=== PATIENT | male | born 1965 ===

== ENCOUNTER → 2020-05-15 14:55 | Outpatient (BNVA) | payer OTHER, SELFPAY | PROVIDERS: PCP Internal Medicine; Visit Provider Internal Medicine ==

== ENCOUNTER → 2020-11-29 15:03 | Outpatient (BNVA) | payer OTHER, SELFPAY | PROVIDERS: PCP Nurse Practitioner Family; Visit Provider Internal Medicine ==

== ENCOUNTER → 2021-06-11 14:54 | Outpatient (BNVA) | payer OTHER, SELFPAY | PROVIDERS: PCP Nurse Practitioner Family; Visit Provider Internal Medicine ==

== ENCOUNTER → 2022-06-10 14:52 | Outpatient (BNVA) | payer OTHER, SELFPAY | PROVIDERS: PCP Nurse Practitioner Family; Visit Provider Internal Medicine | DX: Z13.89 Encounter for screening for other disorder (principal) ==

== ENCOUNTER 2022-12-16 14:43 | Outpatient (AMB) | payer OTHER, SELFPAY ==
--- NOTE | 2022-12-16 14:57 | A.OFFVIS_ITS ---
Intake Vital Signs 12/16/22 14:58 Height 5 ft 11 in Weight 343 lb BMI 47.8 BP 122/76 Blood Pressure Location Lt brachial Position Sitting Pulse 87 Pulse Source Pulse Oximeter Pulse Oximetry (%) 97 Oxygen Delivery Method Room Air Intake Visit Reasons: Sleep apnea Intake Note: pt is here for follow up and states he is doing well with cpap. Watch And Clock Maker And Repairer Required: No Allergies azathioprine [From Imuran] Adverse Reaction (Unknown, Verified 12/16/22 15:24) HYPOTENSION oxycodone [From Percocet] Adverse Reaction (Unknown, Verified 12/16/22 15:24) NAUSEA & VOMITING Medication List - Last Reconciled 12/16/22 by Fabricio Jernigan MD allopurinol 150 mg PO DAILY cholecalciferol (vitamin D3) 25 mcg PO DAILY infliximab (Remicade) IV .q7w losartan 50 mg PO DAILY magnesium 400 mg PO DAILY multivitamin (Daily Multi-Vitamin tablet) 1 tab PO DAILY sildenafil 100 mg PO DAILY PRN HPI Sleep apnea HPI Details 57 years old big man , works in [employer], known case S of obstructive sleep apnea, being treated with BiPAP CMs He uses his BiPAP very, regularly with full face mask sleeps almost 8 hours per night, Denies any problems with the mask or CPAP device. He remains active and energetic during the daytime. Weight jackson not a big progress but he has lost about 6 lb during the last 6 months. [facility] Medical History (Updated 12/16/22 @ 15:34 by Fabricio Jernigan MD) Crohn disease FISH treated with BiPAP Morbid obesity Social History (Updated 12/16/22 @ 15:00 by Ariela Baptiste Amanda) Patient Tobacco Use Status: Former Tobacco user Years Smoked: 2007 Review of Systems Const All systems reviewed & are unremarkable except as noted in HPI and below Eyes Reports no additional complaints ENT Reports no additional complaints Card Denies chest pain, Denies irregular heart rhythm, Denies leg edema and Denies dyspnea on exertion Resp Denies cough, Denies dyspnea on exertion and Denies wheezing GI Reports no additional complaints Musc Reports back pain and Reports arthralgias (CONTROLLED WITH MEDICINE) Skin/Breast Reports system reviewed and no additional complaints, except as documented Neuro Reports no additional complaints Psych Reports no additional complaints Aller/Immun Denies wheezing Physical Exam Vital Signs: Last Vital Signs Pulse 87 12/16/22 14:58 BP 122/76 12/16/22 14:58 Pulse Ox 97 12/16/22 14:58 Oxygen Delivery Method Room Air 12/16/22 14:58 BMI result Body Mass Index 47.8 Const Other: Grossly obese with a round face General: comfortable, no acute distress, alert and awake Orientation/consciousness: patient oriented x3 HEENT Head: Yes normal to inspection General nose exam: No nasal polyps present and No nasal discharge present Face and sinus: Yes sinuses nontender Mouth: oropharynx normal Throat: Yes posterior oropharynx normal Eyes General: appearance normal, both eyes and all related structures Neck Neck: Yes normal visual inspection, Yes no lymphadenopathy, Yes trachea midline and Yes no JVD Thyroid: Thyroid normal Chest Chest palpation & inspection: normal inspection of the chest, normal palpation of entire chest wall and no tenderness Resp Effort & Inspection: normal respiratory effort Auscultation: clear to auscultation bilaterally, no crackles and no wheezes Percussion: percussion normal Cardio Palpation: normal PMI Rate: regular rate Rhythm: regular rhythm Heart sounds: no gallops and no murmurs Peripheral pulses: Peripheral pulses 2+ throughout GI Palpation (GI): Soft to palpation, nontender, No hepatosplenomegaly present, no masses and Other GI palpation findings present (Abdomen is markedly obese and protuberant) Auscultation: normal bowel sounds Back/Spine/Pelvis Thoracic/Lumbar Spine: thoracic and lumbar spine normal to inspection Skin General skin exam: no rashes or lesions noted Neuro General: patient oriented x3 and no focal motor deficits Cranial nerves: Yes CN's II-XII intact bilaterally Extrem General: Yes normal to inspection, Yes no clubbing, cyanosis or edema and Yes no calf tenderness Psych Appearance: grossly normal and well kempt Speech and movement: Normal speech and movement present Results Reviewed Results Reviewed: Compliance report for the last 30 nights is reviewed. He has used 30/30 nights, 100%. Average use per night 7 hours 53 minutes. Pressure used 19.6 cm. No significant air leak. Residual AHI 1.3 Assessment & Plan Assessment & Plan (1) Morbid obesity: Comment: THIS GENTLEMAN REMAINS MORBIDLY OBESE. HE HAS NOT BEEN DOING MUCH EXERCISE. I HAD A DETAILED DISCUSSION AND STRESSED THAT HE NEEDS TO START DAILY WALKING AND CUT DOWN ON THE CALORIES INTAKE. OR MAY JOIN A WEIGHT MANAGEMENT PROGRAM. HE SEEMS TO BE WELL MOTIVATED TO LOSE WEIGHT, AND IS GOING TO TRY HIS BEST. Code(s): E66.01 - Morbid (severe) obesity due to excess calories (2) FISH treated with BiPAP: Comment: HE IS VERY COMPLIANT TO USE CPAP, PRESSURE 19.8 CMs , AND IS DEFINITELY BENEFITING. HE HAS NO ISSUES WITH THE MASK OR CPAP DEVICE. HE IS WELL MOTIVATED TO KEEP ON USING IT REGULARLY. Code(s): G47.33 - Obstructive sleep apnea (adult) (pediatric) (3) Crohn disease: Comment: This gentleman is a known case of Crohn's disease. It remains well controlled with the use of Remicade. Code(s): K50.90 - Crohn's disease, unspecified, without complications Coding Level of Care Code Est Pt Level 3 (98869) Diagnoses Morbid obesity E66.01 FISH treated with BiPAP G47.33 Crohn disease K50.90
[2022-12-16 14:58] VITALS: BP 122/76; PULSE 87; O2SAT 97; BMI 47.8
== END 2022-12-16 15:26 | disposition home or self-care (01) ==
PROVIDERS: PCP Nurse Practitioner Family; Visit Provider Internal Medicine
DX: E66.01 Morbid (severe) obesity due to excess calories (principal); G47.33 Obstructive sleep apnea (adult) (pediatric); K50.90 Crohn's disease, unspecified, without complications
CPT/HCPCS: 99213

== ENCOUNTER → 2022-12-16 14:43 | Outpatient (BNVA) | payer OTHER, SELFPAY | PROVIDERS: PCP Nurse Practitioner Family; Visit Provider Internal Medicine | DX: E66.01 Morbid (severe) obesity due to excess calories (principal); G47.33 Obstructive sleep apnea (adult) (pediatric) ==

== ENCOUNTER 2023-06-16 15:49 | Outpatient (AMB) | payer OTHER, SELFPAY ==
--- NOTE | 2023-06-16 15:53 | MHC.OFFVIS ---
Intake Vital Signs 06/16/23 15:54 Height 5 ft 11 in Weight 346 lb 2.012 oz BMI 48.3 BP 120/82 Blood Pressure Location Lt brachial Position Sitting Pulse 81 Pulse Source Pulse Oximeter Pulse Oximetry (%) 96 Oxygen Delivery Method Room Air Intake Visit Reasons: Sleep apnea Intake Note: pt is here for follow up and states he is using cpap and doing well. Party Plan Sales Host/Hostess Required: No Allergies azathioprine [From Imuran] Adverse Reaction (Unknown, Verified 06/16/23 16:02) HYPOTENSION oxycodone [From Percocet] Adverse Reaction (Unknown, Verified 06/16/23 16:02) NAUSEA & VOMITING Medication List - Last Reconciled 06/16/23 by Fabricio Jernigan MD allopurinol 150 mg PO DAILY amlodipine 5 mg PO DAILY cholecalciferol (vitamin D3) 25 mcg PO DAILY infliximab (Remicade) IV .q7w losartan 100 mg PO DAILY magnesium 400 mg PO DAILY multivitamin (Daily Multi-Vitamin tablet) 1 tab PO DAILY sildenafil 100 mg PO DAILY PRN Do you need a note to return to daycare/school/sports/work: No HPI Sleep apnea HPI Details HAYDEN AUGUST IS 57 YEARS OLD GENTLEMAN WITH MORBID OBESITY, CURRENT BMI 48.3, HE HAS A KNOWN CASE OF OBSTRUCTIVE SLEEP APNEA, BEING TREATED WITH CPAP PRESSURE SETTING OF 19.6 CM. HE COMES AFTER 6 MONTHS FOR FOLLOW-UP. HE HE HAS BEEN USING IT VERY REGULARLY EVERY NIGHT AT LEAST 8 HOURS PER NIGHT,. AND SLEEPS GOOD HE HAS NO ISSUES WITH THE CPAP DEVICE EXCEPT FOR SOME AIR LEAK AND HE HAS SOLVED IT BY PUTTING SOME TAPE AROUND THE MASK LINING. HE IS DEFINITELY BENEFITING FROM THE USE OF CPAP. HIS WEIGHT REMAINS UNCHANGED, HE HAS BEEN SOMEWHAT SEDENTARY DURING THE WINTER MONTHS. [facility] Medical History Crohn disease FISH treated with BiPAP Morbid obesity Social History Patient Tobacco Use Status: Former Tobacco user Years Smoked: 2007 Review of Systems Const All systems reviewed & are unremarkable except as noted in HPI and below Eyes Reports no additional complaints ENT Reports no additional complaints Card Denies chest pain, Denies irregular heart rhythm, Denies leg edema and Denies dyspnea on exertion Resp Denies cough, Denies dyspnea on exertion and Denies wheezing GI Reports no additional complaints Musc Reports back pain and Reports arthralgias (CONTROLLED WITH MEDICINE) Skin/Breast Reports system reviewed and no additional complaints, except as documented Neuro Reports no additional complaints Psych Reports no additional complaints Aller/Immun Denies wheezing Physical Exam Vital Signs: Last Vital Signs Pulse 81 06/16/23 15:54 BP 120/82 06/16/23 15:54 Pulse Ox 96 06/16/23 15:54 Oxygen Delivery Method Room Air 06/16/23 15:54 BMI result Body Mass Index 48.3 Const Other: Grossly obese with a round face General: comfortable, no acute distress, alert and awake Orientation/consciousness: patient oriented x3 HEENT Head: Yes normal to inspection General nose exam: No nasal polyps present and No nasal discharge present Face and sinus: Yes sinuses nontender Mouth: oropharynx normal Throat: Yes posterior oropharynx normal Eyes General: appearance normal, both eyes and all related structures Neck Neck: Yes normal visual inspection, Yes no lymphadenopathy, Yes trachea midline and Yes no JVD Thyroid: Thyroid normal Chest Chest palpation & inspection: normal inspection of the chest, normal palpation of entire chest wall and no tenderness Resp Effort & Inspection: normal respiratory effort Auscultation: clear to auscultation bilaterally, no crackles and no wheezes Percussion: percussion normal Cardio Palpation: normal PMI Rate: regular rate Rhythm: regular rhythm Heart sounds: no gallops and no murmurs Peripheral pulses: Peripheral pulses 2+ throughout GI Palpation (GI): Soft to palpation, nontender, No hepatosplenomegaly present, no masses and Other GI palpation findings present (Abdomen is markedly obese and protuberant) Auscultation: normal bowel sounds Back/Spine/Pelvis Thoracic/Lumbar Spine: thoracic and lumbar spine normal to inspection Skin General skin exam: no rashes or lesions noted Neuro General: patient oriented x3 and no focal motor deficits Cranial nerves: Yes CN's II-XII intact bilaterally Extrem General: Yes normal to inspection, Yes no clubbing, cyanosis or edema and Yes no calf tenderness Psych Appearance: grossly normal and well kempt Speech and movement: Normal speech and movement present Results Reviewed Results Reviewed: COMPLIANCE REPORT FOR THE LAST 30 NIGHTS SHOWS THAT HE HAS USED 30/30 NIGHTS, 100%. AVERAGE USE IT PER NIGHT 8 HOURS 3 MINUTES. .THERE IS ONLY MINIMAL AIR LEAK RESIDUAL AHI 2.0 Assessment & Plan Assessment & Plan (1) Morbid obesity: Comment: THIS GENTLEMAN REMAINS MORBIDLY OBESE. HE HAS NOT BEEN DOING MUCH EXERCISE. HE SEEMS TO BE WELL MOTIVATED TO LOSE WEIGHT, AND IS GOING TO TRY HIS BEST. Code(s): E66.01 - Morbid (severe) obesity due to excess calories Plan: I HAD A DETAILED DISCUSSION AND STRESSED THAT HE NEEDS TO START DAILY WALKING AND CUT DOWN ON THE CALORIES INTAKE. OR MAY JOIN A WEIGHT MANAGEMENT PROGRAM. (2) FISH treated with BiPAP: Comment: HE IS VERY COMPLIANT TO USE CPAP, PRESSURE 19.6 CMs , AND IS DEFINITELY BENEFITING. HE HAS NO ISSUES WITH THE MASK OR CPAP DEVICE. HE IS WELL MOTIVATED TO KEEP ON USING IT REGULARLY. Code(s): G47.33 - Obstructive sleep apnea (adult) (pediatric) Plan: COMMENDED FOR GOOD COMPLIANCE. ADVISED TO KEEP ON USING CPAP EVERY NIGHT. Coding Level of Care Code Est Pt Level 3 (32199) Diagnoses Morbid obesity E66.01 FISH treated with BiPAP G47.33
[2023-06-16 15:54] VITALS: BP 120/82; PULSE 81; O2SAT 96; BMI 48.3
== END 2023-06-16 16:10 | disposition home or self-care (01) ==
PROVIDERS: PCP Nurse Practitioner Family; Visit Provider Internal Medicine
DX: E66.01 Morbid (severe) obesity due to excess calories (principal); G47.33 Obstructive sleep apnea (adult) (pediatric)
CPT/HCPCS: 99213

== ENCOUNTER → 2023-06-16 15:49 | Outpatient (BNVA) | payer OTHER, SELFPAY | PROVIDERS: PCP Nurse Practitioner Family; Visit Provider Internal Medicine | DX: E66.01 Morbid (severe) obesity due to excess calories (principal); G47.33 Obstructive sleep apnea (adult) (pediatric) ==

== ENCOUNTER 2024-02-11 15:21 | Outpatient (AMB) | payer OTHER, SELFPAY ==
--- NOTE | 2024-02-11 15:24 | MHC.OFFVIS ---
Vital Signs 02/11/24 15:29 Height 5 ft 11 in Weight 347 lb 3.649 oz BMI 48.4 BP 126/80 Blood Pressure Location Rt brachial Pulse 81 Pulse Source Pulse Oximeter Pulse Oximetry (%) 98 Oxygen Delivery Method Room Air Intake Visit Reasons: sleep apnea Coat Ironer Hand Required: No Pneudraulic Systems Mechanic: Pneudraulic Systems Mechanic offered & declined Accompanied by: Self / Same As Patient Allergies azathioprine [From Imuran] Adverse Reaction (Unknown, Verified 02/11/24 15:34) HYPOTENSION oxycodone [From Percocet] Adverse Reaction (Unknown, Verified 02/11/24 15:34) NAUSEA & VOMITING Medication List - Last Reconciled 02/11/24 by Fabricio Jernigan MD allopurinol 150 mg PO DAILY amlodipine 5 mg PO DAILY cholecalciferol (vitamin D3) 25 mcg PO DAILY infliximab (Remicade) IV .q7w losartan 100 mg PO DAILY magnesium 400 mg PO DAILY multivitamin (Daily Multi-Vitamin tablet) 1 tab PO DAILY sildenafil 100 mg PO DAILY PRN Do you need a note to return to daycare/school/sports/work: No HPI HPI sleep apnea: Details: THIS 58 YEARS OLD GENTLEMAN WITH MORBID OBESITY, IS HERE FOR FOLLOW-UP FOR HIS SLEEP APNEA. HE HAS NOT BEEN ABLE TO LOSE MUCH WEIGHT, BECAUSE HE IS NOT ABLE TO DO ANY EXERCISE. USES CPAP VERY RELIGIOUSLY EVERY NIGHT AND SLEEPS WELL FOR 7-8 HOURS, HE HAS NO ISSUE WITH THE CPAP DEVICE , AND IS HAPPY THAT IT HAS IMPROVED HIS SLEEP QUALITY. [facility] Medical History Crohn disease FISH treated with BiPAP Morbid obesity Social History Patient Tobacco Use Status: Former Tobacco user Years Smoked: 2007 Review of Systems Const All systems reviewed & are unremarkable except as noted in HPI and below Eyes Reports no additional complaints ENT Reports no additional complaints Card Denies chest pain, Denies irregular heart rhythm, Denies leg edema and Denies dyspnea on exertion Resp Denies cough, Denies dyspnea on exertion and Denies wheezing GI Reports no additional complaints Musc Reports back pain and Reports arthralgias (CONTROLLED WITH MEDICINE) Skin/Breast Reports system reviewed and no additional complaints, except as documented Neuro Reports no additional complaints Psych Reports no additional complaints Aller/Immun Denies wheezing Physical Exam Vital Signs: Last Vital Signs Pulse 81 02/11/24 15:29 BP 126/80 02/11/24 15:29 Pulse Ox 98 02/11/24 15:29 Oxygen Delivery Method Room Air 02/11/24 15:29 BMI result Body Mass Index 48.4 Const Other: Grossly obese with a round face General: comfortable, no acute distress, alert and awake Orientation/consciousness: patient oriented x3 HEENT Head: Yes normal to inspection General nose exam: No nasal polyps present and No nasal discharge present Face and sinus: Yes sinuses nontender Mouth: oropharynx normal Throat: Yes posterior oropharynx normal Eyes General: appearance normal, both eyes and all related structures Neck Neck: Yes normal visual inspection, Yes no lymphadenopathy, Yes trachea midline and Yes no JVD Thyroid: Thyroid normal Chest Chest palpation & inspection: normal inspection of the chest, normal palpation of entire chest wall and no tenderness Resp Effort & Inspection: normal respiratory effort Auscultation: clear to auscultation bilaterally, no crackles and no wheezes Percussion: percussion normal Cardio Palpation: normal PMI Rate: regular rate Rhythm: regular rhythm Heart sounds: no gallops and no murmurs Peripheral pulses: Peripheral pulses 2+ throughout GI Palpation (GI): Soft to palpation, nontender, No hepatosplenomegaly present, no masses and Other GI palpation findings present (Abdomen is markedly obese and protuberant) Auscultation: normal bowel sounds Back/Spine/Pelvis Thoracic/Lumbar Spine: thoracic and lumbar spine normal to inspection Skin General skin exam: no rashes or lesions noted Neuro General: patient oriented x3 and no focal motor deficits Cranial nerves: Yes CN's II-XII intact bilaterally Extrem General: Yes normal to inspection, Yes no clubbing, cyanosis or edema and Yes no calf tenderness Psych Appearance: grossly normal and well kempt Speech and movement: Normal speech and movement present Results Reviewed Results Reviewed: COMPLIANCE REPORT FOR THE LAST 90 NIGHTS SHOWS THAT HE HAS USED 100% OF THE NIGHTS. AVERAGE USE IT PER NIGHT 7 HOURS 55 MINUTES. CURRENTLY HE IS ON PRESSURE OF 19.6 CM ( 19.6/19.6 ) NO AIR LEAK. RESIDUAL AHI ONLY 1.1 Assessment & Plan Assessment & Plan (1) Crohn disease: Comment: This gentleman is a known case of Crohn's disease. It remains well controlled with the use of Remicade. Code(s): K50.90 - Crohn's disease, unspecified, without complications Category: Medical Plan: HE WILL CONTINUE TO FOLLOW-UP WITH GI SERVICE. (2) FISH treated with BiPAP: Comment: HE IS VERY COMPLIANT TO USE CPAP, PRESSURE 19.6 CMs , AND IS DEFINITELY BENEFITING. HE HAS NO ISSUES WITH THE MASK OR CPAP DEVICE. HE IS WELL MOTIVATED TO KEEP ON USING IT REGULARLY. Code(s): G47.33 - Obstructive sleep apnea (adult) (pediatric) Category: Medical Plan: COMMENDED FOR HIS EXCELLENT COMPLIANCE AND ENCOURAGED TO KEEP ON USING EVERY NIGHT. (3) Morbid obesity: Comment: THIS GENTLEMAN REMAINS MORBIDLY OBESE. HE HAS NOT BEEN DOING MUCH EXERCISE. HE SEEMS TO BE WELL MOTIVATED TO LOSE WEIGHT, AND IS GOING TO TRY HIS BEST. Code(s): E66.01 - Morbid (severe) obesity due to excess calories Category: Medical Plan: AGAIN DISCUSSED WITH HIM THE IMPORTANCE OF WEIGHT REDUCTION, AND ENCOURAGED TO PARTICIPATE. IN A WEIGHT MANAGEMENT PROGRAM Coding Level of Care Code Est Pt Level 3 (83528) Diagnoses Crohn disease K50.90 FISH treated with BiPAP G47.33 Morbid obesity E66.01
[2024-02-11 15:29] VITALS: BP 126/80; PULSE 81; O2SAT 98; BMI 48.4
== END 2024-02-11 15:39 | disposition home or self-care (01) ==
PROVIDERS: PCP Family Medicine; Visit Provider Internal Medicine
DX: K50.90 Crohn's disease, unspecified, without complications (principal); G47.33 Obstructive sleep apnea (adult) (pediatric); E66.01 Morbid (severe) obesity due to excess calories
CPT/HCPCS: 99213

== ENCOUNTER → 2024-02-11 15:21 | Outpatient (BNVA) | payer OTHER, SELFPAY | PROVIDERS: PCP Nurse Practitioner Family; Visit Provider Internal Medicine ==

== ENCOUNTER 2024-09-15 15:36 | Outpatient (AMB) | payer OTHER, SELFPAY ==
--- NOTE | 2024-09-15 15:39 | A.OFFVIS_ITS ---
Vital Signs 09/15/24 15:40 Height 5 ft 11 in Weight 347 lb 3.649 oz BMI 48.4 BP 102/64 Blood Pressure Location Lt brachial Position Sitting Pulse 53 Pulse Source Pulse Oximeter Pulse Oximetry (%) 97 Oxygen Delivery Method Room Air Intake Visit Reasons: Sleep apnea Intake Note: pt is her for follow up and states he is feeling good, and cpap is well, and getting supplies. Light Armored Vehicle Officer Required: No Allergies azathioprine [From Imuran] Adverse Reaction (Unknown, Verified 09/15/24 15:52) HYPOTENSION oxycodone [From Percocet] Adverse Reaction (Unknown, Verified 09/15/24 15:52) NAUSEA & VOMITING Medication List - Last Reconciled 09/15/24 by Fabricio Jernigan MD allopurinol 150 mg PO DAILY amlodipine 5 mg PO DAILY cholecalciferol (vitamin D3) 25 mcg PO DAILY infliximab (Remicade) IV .q7w losartan 100 mg PO DAILY magnesium 400 mg PO DAILY multivitamin (Daily Multi-Vitamin tablet) 1 tab PO DAILY sildenafil 100 mg PO DAILY PRN HPI HPI Sleep apnea: Details: THIS 58 YEARS OLD GENTLEMAN WITH MORBID OBESITY AND OBSTRUCTIVE SLEEP APNEA COMES TODAY FOR HIS 6 MONTHS FOLLOW-UP. HE USES CPAP VERY REGULARLY EVERY NIGHT, VIA FULLFACE MASK ALONG WITH CHINSTRAP. HE CLAIMS THAT HE SLEEPS WITHOUT MUCH PROBLEM. AND HE IS VERY HAPPY WITH HIS CPAP AND THE MASK AT THIS TIME. HAS NOT BEEN ABLE TO LOSE ANY WEIGHT AND NOW HE IS GETTING READY TO BE STARTED ON WAGOVY INJECTIONS. [facility] Medical History Crohn disease FISH treated with BiPAP Morbid obesity Social History Patient Tobacco Use Status: Former Tobacco user Years Smoked: 2007 Review of Systems Const All systems reviewed & are unremarkable except as noted in HPI and below Eyes Reports no additional complaints ENT Reports no additional complaints Card Denies chest pain, Denies irregular heart rhythm, Denies leg edema and Denies dyspnea on exertion Resp Denies cough, Denies dyspnea on exertion and Denies wheezing GI Reports no additional complaints Musc Reports back pain and Reports arthralgias (CONTROLLED WITH MEDICINE) Skin/Breast Reports system reviewed and no additional complaints, except as documented Neuro Reports no additional complaints Psych Reports no additional complaints Aller/Immun Denies wheezing Physical Exam Vital Signs: Last Vital Signs Pulse 53 09/15/24 15:40 BP 102/64 09/15/24 15:40 Pulse Ox 97 09/15/24 15:40 Oxygen Delivery Method Room Air 09/15/24 15:40 BMI result Body Mass Index 48.4 Const Other: Grossly obese with a round face General: comfortable, no acute distress, alert and awake Orientation/consciousness: patient oriented x3 HEENT Head: Yes normal to inspection General nose exam: No nasal polyps present and No nasal discharge present Face and sinus: Yes sinuses nontender Mouth: oropharynx normal Throat: Yes posterior oropharynx normal Eyes General: appearance normal, both eyes and all related structures Neck Neck: Yes normal visual inspection, Yes no lymphadenopathy, Yes trachea midline and Yes no JVD Thyroid: Thyroid normal Chest Chest palpation & inspection: normal inspection of the chest, normal palpation of entire chest wall and no tenderness Resp Effort & Inspection: normal respiratory effort Auscultation: clear to auscultation bilaterally, no crackles and no wheezes Percussion: percussion normal Cardio Palpation: normal PMI Rate: regular rate Rhythm: regular rhythm Heart sounds: no gallops and no murmurs Peripheral pulses: Peripheral pulses 2+ throughout GI Palpation (GI): Soft to palpation, nontender, No hepatosplenomegaly present, no masses and Other GI palpation findings present (Abdomen is markedly obese and protuberant) Auscultation: normal bowel sounds Back/Spine/Pelvis Thoracic/Lumbar Spine: thoracic and lumbar spine normal to inspection Skin General skin exam: no rashes or lesions noted Neuro General: patient oriented x3 and no focal motor deficits Cranial nerves: Yes CN's II-XII intact bilaterally Extrem General: Yes normal to inspection, Yes no clubbing, cyanosis or edema and Yes no calf tenderness Psych Appearance: grossly normal and well kempt Speech and movement: Normal speech and movement present Results Reviewed Results Reviewed: COMPLIANCE REPORT FOR THE LAST 30 NIGHTS. IS REVIEWED HE HAS USED 100% OF THE NIGHTS AND AVERAGE USE PER NIGHT 7 HOURS 54 MINUTES. THERE IS NO SIGNIFICANT AIR LEAK AND RESIDUAL AHI IS 1.0 Assessment & Plan Assessment & Plan (1) Morbid obesity: Comment: THIS GENTLEMAN REMAINS MORBIDLY OBESE. HE HAS NOT BEEN DOING MUCH EXERCISE. HE SEEMS TO BE WELL MOTIVATED TO LOSE WEIGHT, AND IS GOING TO TRY HIS BEST. Code(s): E66.01 - Morbid (severe) obesity due to excess calories Category: Medical Plan: ENCOURAGED TO DISCUSS WITH PRIMARY CARE PHYSICIAN ABOUT STARTING ON WAGOVY INJECTIONS .AND TRY TO LOSE WEIGHT (2) FISH treated with BiPAP: Comment: HE IS VERY COMPLIANT TO USE CPAP, PRESSURE 19.6 CMs , FULLFACE MASK AND CHINSTRAP . HE IS DEFINITELY BENEFITING. HE HAS NO ISSUES WITH THE MASK OR CPAP DEVICE. HE IS WELL MOTIVATED TO KEEP ON USING IT REGULARLY. Code(s): G47.33 - Obstructive sleep apnea (adult) (pediatric) Category: Medical Plan: COMMENDED FOR GOOD COMPLIANCE AND ADVISED TO KEEP ON USING THE CPAP EVERY NIGHT. Coding Level of Care Code Est Pt Level 3 (79856) Diagnoses Morbid obesity E66.01 FISH treated with BiPAP G47.33
[2024-09-15 15:40] VITALS: BP 102/64; PULSE 53; O2SAT 97; BMI 48.4
--- OUTSIDE RECORDS SUMMARY | 2024-09-15 18:03 | XMS_ITS | Continuity of Care Document ---
Author Organization [facility] Dawood Amaury lt Address [address] [place] [address]- Care Team Providers Care Instructional Specialist Name Role Phone Jose KANG, Latanya Primary Care Physician [phone] Encounter [facility] Date(s): 09/07/24 - 09/14/24 [facility] [place] [address] [place] [address]- Encounter Diagnosis Encounter to establish care with new doctor(Discharge Diagnosis) - 09/07/24 Leukocytoclastic vasculitis(Discharge Diagnosis) - 09/07/24 Infliximab (Remicade) long-term use(Discharge Diagnosis) - 09/07/24 CD (Crohn's disease)(Discharge Diagnosis) - 09/07/24 History of substance abuse(Discharge Diagnosis) - 09/07/24 Morbid obesity(Discharge Diagnosis) - 09/07/24 Essential hypertension(Discharge Diagnosis) - 09/07/24 History of anxiety disorder(Discharge Diagnosis) - 09/07/24 History of depression(Discharge Diagnosis) - 09/07/24 Hypertriglyceridemia(Discharge Diagnosis) - 09/07/24 Nodule of right lung(Discharge Diagnosis) - 09/07/24 Chronic back pain(Discharge Diagnosis) - 09/07/24 FISH treated with BiPAP(Discharge Diagnosis) - 09/07/24 CKD (chronic kidney disease)(Discharge Diagnosis) - 09/07/24 Chronic GERD(Discharge Diagnosis) - 09/07/24 Pain of hand and fingers(Discharge Diagnosis) - 09/07/24 Family history of thyroid disorder(Discharge Diagnosis) - 09/07/24 Gout(Discharge Diagnosis) - 09/07/24 Systemic lupus erythematosus(Discharge Diagnosis) - 09/07/24 Prostatitis(Discharge Diagnosis) - 09/07/24 Erectile dysfunction(Discharge Diagnosis) - 09/07/24 Attending Physician: Latanya Garcia MD Encounter Type: Office Visit Allergies, Adverse Reactions, Alerts Substance Criticality Severity Reaction Reaction Severity Status Imuran passed out Active sulfamethoxazole-trimethopri m DS Hives Active amLODIPine swelling Active Bactrim Hives Active Percocet 7.5/325 n/v Act talia Immunizations Given and Recorded Vaccine Date Status Refusal Reason influenza virus vaccine, inactivated 03/11/24 Give n influenza virus vaccine, inactivated 12/01/20 Jose Roberto rded influenza virus vaccine, inactivated 02/02/20 Jose Roberto rded influenza virus vaccine, inactivated 03/12/16 Jose Roberto rded pneumococcal 20-valent conjugate vaccine 12/31/21 Given SARS-CoV-2 (COVID-19) Ad26 vaccine 12/18/20 Given pneumococcal 13-valent vaccine 1 09/05/20 Given tetanus/diphtheria/pertussis, acel(Tdap) 2 09/05/20 Given tetanus/diphtheria/pertussis, acel(Tdap) 06/04/09 Recorded Influenza Virus Vaccine (oldterm) 04/09/17 Recorde d Influenza Virus Vaccine (oldterm) 01/11/16 Recorde d Influenza Virus Vaccine (oldterm) 01/02/15 Recorde d Influenza Virus Vaccine (oldterm) 01/11/14 Recorde d Influenza Virus Vaccine (oldterm) 01/28/12 Recorde d 1Result Comment: given on top of TDAP [facility]-[id number] 2Result Comment: [facility]-[id number] Medications Centrum Silver Men's 1 tablet, By Mouth, Daily, 0 Refills, Maintenance, 06/06/20 2:30:00 PM EST, Partial fill upon patientrequest if the prescription is for a schedule II opioid drug. Start Date: 06/06/20 Status: Ordered Repeat number: 1 ciprofloxacin 250 mg oral tablet 1 tablet = 250 mg, By Mouth, Every 12 hours, # 28 tablet, 0 Refills, Maintenance, 05/27/24 2:00:00 PM EST, Tablet, [id number], Partial fill upon patient request if the prescription is for aschedule II opioid drug., 178.3, cm, 05/27/24 13:43:00 EST, Height, 158.9, kg, 03/10/24 9:24:00 EST, Dry Weight Start Date: 05/27/24 Stop Date: 06/10/24 Status: Ordered Quantity: 28.0 Unit: tablet Repeat number: 1 Fish Oil By Mouth, Daily, 0 Refills, Maintenance, 04/04/24 8:35:00 AM EST, Partial fill upon patient requestif the prescription is for a schedule II opioid drug. Start Date: 04/04/24 Status: Ordered Repeat number: 1 Flomax 0.4 mg oral capsule 0.4 mg, 1, capsule, By Mouth, Daily, Refills 0, Maintenance, 07/21/24 4:39:00 PM EDT, Partial fill upon patient request if the prescription is for a schedule II opioid drug. Start Date: 07/21/24 Status: Ordered Repeat number: 1 folic acid 1 mg oral tablet 1 mg, 1, tablet, By Mouth, Daily, Take 1 tablet daily with breakfast, # 30 tablet, Refills 6, Tot. Refills 6, Maintenance, 04/09/24 11:45:00 AM EST, Route to Pharmacy Electronically, [id number], Partial fill upon patient request if the prescription is for a schedule II opioid drug., 178.3,cm, 04/09/24 10:51:00 EST, Height, 158.9, kg, 03/10/24 9:24:00 EST, Dry Weight Start Date: 04/09/24 Status: Ordered Quantity: 30.0 Unit: tablet Repeat number: 7 hydroxychloroquine 200 mg oral tablet 200 mg, 1, tablet, By Mouth, 2 times a day, # 180 tablet, Refills 2, Tot. Refills 2, Maintenance, 07/21/24 4:42:00 PM EDT, Route to Pharmacy Electronically, [facility], Partial fill upon patient request if the prescription is for a schedule II opioid drug., 178.3, cm, 07/22/2515:37:00 EDT, Height, 158.9, kg, 03/10/24 9:24:00 EST, Dry Weight Start Date: 07/21/24 Status: Ordered Quantity: 180.0 Unit: tablet Repeat number: 3 infliximab 100 mg intravenous powder for injection See Instructions, 650 mg Subcutaneous Injection every 7 weeks, # 7 each, 6 Refills, Maintenance, 05/24/19 9:37:00 AM EST, Injection Start Date: 05/24/19 Status: Ordered Quantity: 7.0 Unit: each Repeat number: 7 losartan 100 mg oral tablet 1 tablet, By Mouth, Daily, # 90 tablet, 3 Refills, Maintenance, 05/30/24 8:00:00 AM EST, [facility], 178.3, cm, 05/27/24 13:43:00 EST, Height, 158.9, kg, 03/10/24 9:24:00 EST, Dry Weight Start Date: 05/30/24 Status: Ordered Quantity: 90.0 Unit: tablet Repeat number: 4 Lysine By Mouth, Twice a week, 0 Refills, Maintenance, 04/04/24 8:35:00 AM EST, Partial fill upon patient request if the prescription is for a schedule II opioid drug. Start Date: 04/04/24 Status: Ordered Repeat number: 1 methotrexate 2.5 mg oral tablet 6 tablet = 15 mg, By Mouth, Every week, for 90 days, Take 6 tablets once a week at bedtime, # 72 tablet, 1 Refills, Hard Stop 11/10/24 11:46:00 AM EDT, 05/14/24 11:46:00 AM EST, [facility], Partial fill upon patient request if the prescription is for a schedule II opioid drug., 178.3, cm, 04/09/24 10:51:00 EST, Height, 158.9, kg, 03/10/24 9:24:00 EST, Dry Weight Start Date: 05/14/24 Stop Date: 11/10/24 Status: Ordered Quantity: 72.0 Unit: tablet Repeat number: 2 methotrexate 2.5 mg oral tablet 6 tablet = 15 mg, By Mouth, Every week, Take 6 tablets once a week at bedtime, # 30 tablet, 6 Refills, Maintenance, 11/05/24 11:45:00 AM EDT, [facility], Partial fill upon patient request if the prescription is for a schedule II opioid drug., 178.3, cm, 04/09/24 10:51:00 EST, Height, 158.9, kg, 03/10/24 9:24:00 EST, Dry Weight Start Date: 11/05/24 Stop Date: 06/03/25 Status: Ordered Quantity: 30.0 Unit: tablet Repeat number: 7 methotrexate 2.5 mg oral tablet 6 tablet = 15 mg, By Mouth, Every week, for 30 days, Take 6 tablets once a week at bedtime, # 30 tablet, 6 Refills, Hard Stop 11/05/24 11:45:00 AM EDT, 04/09/24 11:45:00 AM EST, [facility], Partial fill upon patient request if the prescription is for a schedule II opioid drug., 178.3, cm, 04/09/24 10:51:00 EST, Height, 158.9, kg, 03/10/24 9:24:00 EST, Dry Weight Start Date: 04/09/24 Stop Date: 11/05/24 Status: Ordered Quantity: 30.0 Unit: tablet Repeat number: 7 metoprolol 25 mg oral tablet, extended release 25 mg, 1, tablet, By Mouth, Daily, # 30 tablet, Refills 4, Tot. Refills 4, Maintenance, 09/07/24 4:21:00 PM EDT, Route to Pharmacy Electronically, [id number], Partial fill upon patient request if the prescription is for a schedule II opioid drug., 178, cm, 09/07/24 15:59:00 EDT, Height, 158.9, kg, 03/10/24 9:24:00 EST, Dry Weight Start Date: 09/07/24 Status: Ordered Quantity: 30.0 Unit: tablet Repeat number: 5 Indications: Essential (primary) hypertension; predniSONE 20 mg oral tablet = 40 mg, By Mouth, Daily, # 60 tablet, 0 Refills, Maintenance, 03/14/24 10:42:00 AM EST, Tablet, [facility], Partial fill upon patient request if the prescription is for a schedule II opioid drug., 178, cm, 03/14/24 6:27:00 EST, Height, 158.9, kg, 03/10/24 9:24:00 EST, Dry Weight Start Date: 03/14/24 Status: Ordered Quantity: 60.0 Unit: tablet Repeat number: 1 Protonix 20 mg oral delayed release tablet 1 tablet = 20 mg, By Mouth, Daily, # 90 tablet, 0 Refills, Maintenance, 04/09/24 11:49:00 AM EST, CR Tablet, 178.3, cm, 04/09/24 10:51:00 EST, Height, 158.9, kg, 03/10/24 9:24:00 EST, Dry Weight Start Date: 04/09/24 Status: Ordered Quantity: 90.0 Unit: tablet Repeat number: 1 sildenafil 100 mg oral tablet 1 tablet, By Mouth, Daily, PRN NEEDED FOR ERECTILE DYSFUNCTION, # 30 tablet, 5 Refills, Maintenance, 11/12/23 8:23:00 AM EDT, [facility], 177.8, cm, 09/02/23 15:32:00 EDT, Height Start Date: 11/12/23 Status: Ordered Quantity: 30.0 Unit: tablet Repeat number: 6 Problem List Condition Confirmation Course Effective Dates Status Health Status Informant Chronic back pain Confirmed Active CKD (chronic kidney disease) Confirmed Active CD (Crohn's disease) Confirmed Active Infliximab (Remicade) long-term use Confirmed Active Erectile dysfunction Confirmed Active Essential hypertension Confirmed Active Family history of thyroid disorder Confirmed Active Chronic GERD Confirmed Active Gout Confirmed Active History of anxiety disorder Confirmed Active History of depression Confirmed Active Pain of hand and fingers 1 Confirmed Active History of substance abuse Confirmed Active Leukocytoclastic vasculitis Confirmed Active Hypertriglyceridemia Confirmed Active Morbid obesity Confirmed Active Nodule of right lung 2 Confirmed Active FISH treated with BiPAP Confirmed Active Peripheral edema Confirmed Active Seasonal allergies Confirmed Active Severe obesity Confirmed Active 1left finger pain and stiffness 2seen on CT scan Diagnosis Diagnosis Type Effective Dates Health Status Clinical Service Informant Encounter to establish care with new doctor Discharge Diagnosis 09/07/24 Leukocytoclastic vasculitis Discharge Diagnosis 09/07/24 CD (Crohn's disease) Discharge Diagnosis 09/07/24 History of substance abuse Discharge Diagnosis 09/07/24 Morbid obesity Discharge Diagnosis 09/07/24 Essential hypertension Discharge Diagnosis 09/07/24 History of anxiety disorder Discharge Diagnosis 09/07/24 History of depression Discharge Diagnosis 09/07/24 Hypertriglyceridemia Discharge Diagnosis 09/07/24 Infliximab (Remicade) long-term use Discharge Diagnosis 09/07/24 Nodule of right lung Discharge Diagnosis 09/07/24 FISH treated with BiPAP Discharge Diagnosis 09/07/24 CKD (chronic kidney disease) Discharge Diagnosis 09/07/24 Chronic GERD Discharge Diagnosis 09/07/24 Chronic back pain Discharge Diagnosis 09/07/24 Pain of hand and fingers Discharge Diagnosis 09/07/24 Family history of thyroid disorder Discharge Diagnosis 09/07/24 Gout Discharge Diagnosis 09/07/24 Systemic lupus erythematosus Discharge Diagnosis 09/07/24 Prostatitis Discharge Diagnosis 09/07/24 Erectile dysfunction Discharge Diagnosis 09/07/24 Social History Social History Type Response Smoking Status Former smoker, quit more than 30 days ago; Other: ex-smoker - started smoking at age 16 - smoked 1 PPD until age 23 - quit - then started smoking at age 31 - smoked 2 packs per until age 42 - quit again - doesn't qualify for lung CA smoking anymore as he is past 15 years since quit smoking??; Total pack years: 30; entered on: 09/07/24 Sex Sex Representation Male (finding) Note * Anca Bonilla: PERFORM Event Display: Patient Education/Instruction Authored Date: [id number] Ambulatory Adult Visit Summary [facility] [place] [facility] [address] [address] Name: ISIDRO TIFFANIE : 1965?? Visit: 09/07/2024 15:42?? Ambulatory Visit Instructions ?? Your Care Team Primary Care Provider Latanya Garcia MD? This Visit Provider Latanya Garcia MD Your Diagnosis Encounter to establish care with new doctor Leukocytoclastic vasculitis CD (Crohn's disease) History of substance abuse Morbid obesity Essential hypertension History of anxiety disorder History of depression Hypertriglyceridemia Infliximab (Remicade) long-term use Nodule of right lung FISH treated with BiPAP CKD (chronic kidney disease) Chronic GERD Chronic back pain Pain of hand and fingers Family history of thyroid disorder Gout Systemic lupus erythematosus Prostatitis Erectile dysfunction Vitals Signs Temperature: 98 DegF Height: 178 cm Pulse Rate:??94 bpm??High Weight: 161.3 kg Respiratory Rate: 20 br/min Body Mass Index:??50.91 kg/m2??Critical Systolic Blood Pressure: 124 mm Hg Body surface area: 2.82 Diastolic Blood Pressure: 74 mm Hg ?? Oxygen Saturation: 100 % ?? What to do next Follow-Up Appointments Follow Up with??Latanya Garcia MD When:??Within 6 months Why: CPE Mar 2025?? Where: [address] [place] [address] Medical [facility] [place] [address]- Future Orders Protein/Creatinine Ratio Urine (Urine Protein/Creatinine Ratio) - Routine, Once, 07/21/24 17:10:00 EDT, Order for Today, [facility], Urine?? [facility] - Routine, Once, 07/21/24 17:11:00 EDT, Order for Today, [facility], OTHER?? Medications The list below reflects the information in our records and provided by you today along with any changes made during this visit. Please continue your medications until treatment is completed or stopped by your provider. If this is different from the information you have or there are other questions,please contact the prescribing provider. What How Much When Why Instructions New Metoprolol (metoprolol 25 mg oral tablet, extended release) 1 tab(s) Oral Daily Essential hypertension Refills: 4 Pickup at [facility] 5628 Unchanged Ciprofloxacin (ciprofloxacin 250 mg oral tablet) 1 tab(s) Oral Every 12 hours Duration: 14 Days Unchanged Folic Acid (folic acid 1 mg oral tablet) 1 tab(s) Oral Daily Take 1 tablet daily with breakfast ?? Unchanged Hydroxychloroquine (hydroxychloroquine 200 mg oral tablet) 1 tab(s) Oral Twice a day Unchanged Infliximab (infliximab 100 mg intravenous powder for injection) See instructions 650 mg Subcutaneous Injection every 7 weeks ?? Unchanged Losartan (losartan 100 mg oral tablet) 1 tab(s) Oral Daily Unchanged Lysine Oral Twice a week ?? Unchanged Methotrexate (methotrexate 2.5 mg oral tablet) 6 tab(s) Oral Every week Duration: 30 Days Take 6 tablets once a week at bedtime ?? Unchanged Methotrexate (methotrexate 2.5 mg oral tablet) 6 tab(s) Oral Every week Duration: 30 Days Take 6 tablets once a week at bedtime ?? Unchanged Methotrexate (methotrexate 2.5 mg oral tablet) 6 tab(s) Oral Every week Duration: 90 Days Take 6 tablets once a week at bedtime ?? Unchanged Multivitamin With Minerals (Centrum Silver Men's) 1 tab(s) Oral Daily Unchanged Mcwilliams-3 Polyunsaturated Fatty Acids (Fish Oil) Oral Daily Unchanged Pantoprazole (Protonix 20 mg oral delayed release tablet) 1 tab(s) Oral Daily Unchanged PredniSONE (predniSONE 20 mg oral tablet) 40 Milligram Oral Daily Unchanged Sildenafil (sildenafil 100 mg oral tablet) 1 tab(s) Oral Daily as needed for NEEDED FOR ERECTILE DYSFUNCTION Unchanged Tamsulosin (Flomax 0.4 mg oral capsule) 1 capsule Oral Daily Pharmacy Information [facility]: [address] [place], [place] [id number] [phone] Medications and Immunizations Administered Medications Given During Visit No medications given during this visit.?? Allergies (NKA means No Known Allergies) Bactrim??(Hives) Imuran??(passed out) Percocet 7.5/325??(n/v) amLODIPine??(swelling) sulfamethoxazole-trimethoprim DS??(Hives) Common Emergency Awareness Tips IS IT A STROKE? Act FAST and Check for these signs: FACE Does the face look uneven? ARM Does one arm drift down? SPEECH Does their speech sound strange? TIME Call at any sign of stroke ?? Heart Attack Signs Chest discomfort: Most heart attacks involve discomfort in the center of the chest and lasts more than a few minutes, or goes away and comes back. It can feel like uncomfortable pressure, squeezing, fullness or pain. Discomfort in upper body: Symptoms can include pain or discomfort in one or both arms, back, neck, jaw or stomach. Shortness of breath: With or without discomfort. Other signs: Breaking out in a cold sweat, nausea, or lightheaded. Remember, MINUTES DO MATTER. If you experience any of these heart attack warning signs, call to get immediate medical attention! ?? Smoking can increase your chances of developing chronic health problems and can cause harmful effects to other family members in your house. If you smoke, you are strongly encouraged to quit. Please call [employer] at [phone] or [phone] ([phone]) or log in to [email or web address] for referrals to smoking cessation programs. ?? The National Suicide Prevention Hotline is available 27/10 if you or someone you know needs to find a reason to keep living. By calling 6-567-270-[place] (9794) you'll be connected to a skilled, trained counselor at a crisis center in your area. [facility] [employer] Portal You can view and manage your care through the patient portal or by using a health care reji of your choosing. [employer] is a website that allows you to securely view your medical information including your hospital discharge summary, office visit summaries, medications and follow-up visits. You can also request appointments, renew medications, and request access to your medical information using a health care reji of your choosing, or just ask a question. You can enroll at [email or web address] or register during your next office visit. [facility], in keeping with [facility] guidance, no longer requires face masks for staff, patientsor visitors in most situations. Similiar to time spent indoors at other locations, there is the chance that you were exposed to repiratory viruses during your time with us (such as flu or COVID-19). If you develop symptoms concerning for a viral respiratory infection, please seek testing (and treatment if indicated) from your medical provider or home test kit. ?? Disclaimer: The information provided is of a general nature and is intended to be used in conjunction with the recommendations and advice of your health care practitioner. Every effort has been made to ensure that the information provided is accurate and complete at the time it is provided to you however, as your needs change, or, as new information becomes available, different or additional instructions may be required. ?? If you have questions, please consult with your primary care provider or pharmacist, as appropriate. This information is not intended to serve as substitution for assessment and evaluation by a qualified health care provider. If you do not have a primary care provider, you may find a [facility] provider by calling [facility] [employer] [facility] at [phone]. Patient Care team information Care Team Personnel Name: Rickey Kwan RN Position: [facility] RN Member Role: Primary Care Nurse Name: Yessi Patel RN Position: [facility] RN Member Role: Primary Care Nurse Name: Rae Ayala RN Position: [facility] RN Member Role: Primary Care Nurse Name: Latanya Garcia MD Position: [facility] Physician - Primary Care Member Role: PCP Address: [address] [place] [address] [place] [employer]: Name: Shyanne Rousseau RN Position: [facility] AMB Nurse Member Role: Primary Care Nurse Name: Missy Díaz RN Position: [facility] RN Member Role: Primary Care Nurse Care Team Related Persons Name: MAN COLÓN Name: MAN MORENO Insurance Providers Guarantor name: ISIDRO MORENO [employer] Plan Information #: 1 Payer: [employer] Payer Identifier: PENELOPE Member Number: [id number] Group Number: [id number] Subscriber Identifier: [id number] Relationship to Subscriber: self Coverage Type: Commercial Managed Care - HMO Coverage Verification Date: NA Telecom: NA Address:
== END 2024-09-15 15:53 | disposition home or self-care (01) ==
LOC: HO.HPS 15:37
PROVIDERS: PCP Family Medicine; Visit Provider Internal Medicine
DX: E66.01 Morbid (severe) obesity due to excess calories (principal); G47.33 Obstructive sleep apnea (adult) (pediatric)
CPT/HCPCS: 99213

== ENCOUNTER → 2024-09-15 15:36 | Outpatient (BNVA) | payer OTHER, SELFPAY | PROVIDERS: PCP Family Medicine; Visit Provider Internal Medicine ==

== ENCOUNTER 2025-03-16 15:42 | Outpatient (AMB) | payer OTHER, SELFPAY ==
--- OUTSIDE RECORDS SUMMARY | 2025-03-14 23:59 | XMS_ITS | Continuity of Care Document ---
Author Organization [facility] Nathan Seay Amaury lt Address [address] [place] [address]- Care Team Providers Care Manager Programs Name Role Phone Latanya Garcia MD Primary Care Physician [facility] [id number] Date(s): 03/07/25 - 03/14/25 [facility] Adult [address] [place] [address]- Encounter Diagnosis Hospital discharge follow-up(Discharge Diagnosis) - 03/06/25 Herpes zoster ophthalmicus, right eye(Discharge Diagnosis) - 03/07/25 Administrative encounter(Discharge Diagnosis) - 03/07/25 Attending Physician: Latanya Garcia MD Encounter Type: Office Visit Allergies, Adverse Reactions, Alerts Substance Criticality Severity Reaction Reaction Severity Status Imuran passed out Active Bactrim Hives Active sulfamethoxazole-trimethopri m DS Hives Active Percocet 7.5/325 n/v Act talia amLODIPine swelling Active Functional Status Functional Status Assessment Assessment Assessment Component Result Effecti ve Date Disability status [CUBS] I'm Thriving - no identified disability 03/07/25 Difficulty Reading O r Writing Yes 03/07/25 Because of a physica l, mental, or emotional condition, do you have serious difficulty concentrating, remembering, or making decisions No 03/07/25 Difficulty communica ting in usual language No 03/07/25 Are you blind, or do you have serious difficulty seeing, even when wearing glasses Yes 03/07/25 Because of a physica l, mental, or emotional condition, do you have difficulty doing errands alone such as visiting a physician's office or shopping Yes 03/07/25 Are you deaf, or do you have serious difficulty hearing No 03/07/25 Do you have difficul ty dressing or bathing No 03/07/25 Do you have serious difficulty walking or climbing stairs No 03/07/25 Do you need any kelsey tional assistance or accommodations during your visit No 03/07/25 Immunizations Given and Recorded Vaccine Date Status [...] 1Result Comment: given on top of TDAP [id number] 2Result Comment: [id number] Medications allopurinol 300 mg oral tablet 150 mg, 0.5, tablet, By Mouth, Daily, take 1/2 tablet daily, # 45 tablet, Refills 3, Tot. Refills 3, Maintenance, 12/09/24 3:31:00 PM EDT, Route to Pharmacy Electronically, [facility], Partial fill upon patient request if the prescription is for a schedule II opioid drug., 178,cm, 10/17/24 13:54:00 EDT, Height, 156, kg, 10/13/24 11:21:00 EDT, Dry Weight Start Date: 12/09/24 Stop Date: 12/04/25 Status: Ordered Medication Dispense Status: Completed Quantity: 45.0 Unit: tablet Total Allowed Fills: 4 Fills Dispensed: 0 Centrum Silver Men's 1 tablet, By Mouth, Daily, 0 Refills, Maintenance, 06/06/20 2:30:00 PM EST, Partial fill upon patientrequest if the prescription is for a schedule II opioid drug. Start Date: 06/06/20 Status: Ordered Medication Dispense Status: Completed Total Allowed Fills: 1 Fills Dispensed: 0 Fish Oil By Mouth, Daily, 0 Refills, Maintenance, 04/04/24 8:35:00 AM EST, Partial fill upon patient requestif the prescription is for a schedule II opioid drug. Start Date: 04/04/24 Status: Ordered Medication Dispense Status: Completed Total Allowed Fills: 1 Fills Dispensed: 0 Flomax 0.4 mg oral capsule 0.4 mg, 1, capsule, By Mouth, Daily, Refills 0, Maintenance, 07/21/24 4:39:00 PM EDT, Partial fill upon patient request if the prescription is for a schedule II opioid drug. Start Date: 07/21/24 Status: Ordered Medication Dispense Status: Completed Total Allowed Fills: 1 Fills Dispensed: 0 folic acid 1 mg oral tablet 1 mg, 1, tablet, By Mouth, Daily, Take 1 tablet daily with breakfast, # 90 tablet, Refills 1, Tot. Refills 1, Maintenance, 11/14/24 8:29:00 AM EDT, Route to Pharmacy Electronically, [id number], Partial fill upon patient request if the prescription is for a schedule II opioid drug., 178, cm, 10/17/24 13:54:00 EDT, Height, 156, kg, 10/13/24 11:21:00 EDT, Dry Weight Start Date: 11/14/24 Status: Ordered Medication Dispense Status: Completed Quantity: 90.0 Unit: tablet Total Allowed Fills: 2 Fills Dispensed: 0 hydroxychloroquine 200 mg oral tablet 200 mg, 1, tablet, By Mouth, 2 times a day, # 180 tablet, Refills 2, Tot. Refills 2, Maintenance, 07/21/24 4:42:00 PM EDT, Route to Pharmacy Electronically, [facility], Partial fill upon patient request if the prescription is for a schedule II opioid drug., 178.3, cm, 07/22/2515:37:00 EDT, Height, 158.9, kg, 03/10/24 9:24:00 EST, Dry Weight Start Date: 07/21/24 Status: Ordered Medication Dispense Status: Completed Quantity: 180.0 Unit: tablet Total Allowed Fills: 3 Fills Dispensed: 0 infliximab 100 mg intravenous powder for injection See Instructions, 650 mg Subcutaneous Injection every 7 weeks, # 7 each, 6 Refills, Maintenance, 05/24/19 9:37:00 AM EST, Injection Start Date: 05/24/19 Status: Ordered Medication Dispense Status: Completed Quantity: 7.0 Unit: each Total Allowed Fills: 7 Fills Dispensed: 0 losartan 100 mg oral tablet 1 tablet, By Mouth, Daily, # 90 tablet, 3 Refills, Maintenance, 05/30/24 8:00:00 AM EST, [facility], 178.3, cm, 05/27/24 13:43:00 EST, Height, 158.9, kg, 03/10/24 9:24:00 EST, Dry Weight Start Date: 05/30/24 Status: Ordered Medication Dispense Status: Completed Quantity: 90.0 Unit: tablet Total Allowed Fills: 4 Fills Dispensed: 0 Lysine By Mouth, Twice a week, 0 Refills, Maintenance, 04/04/24 8:35:00 AM EST, Partial fill upon patient request if the prescription is for a schedule II opioid drug. Start Date: 04/04/24 Status: Ordered Medication Dispense Status: Completed Total Allowed Fills: 1 Fills Dispensed: 0 methotrexate 2.5 mg oral tablet See Instructions, TAKE 6 TABLETS ONCE WEEKLY AT BEDTIME, # 72 tablet, 1 Refills, Maintenance, 11/14/24 8:29:00 AM EDT, [facility], 178, cm, 10/17/24 13:54:00 EDT, Height, 156, kg, 10/13/24 11:21:00 EDT, Dry Weight Start Date: 11/14/24 Status: Ordered Medication Dispense Status: Completed Quantity: 72.0 Unit: tablet Total Allowed Fills: 1 Fills Dispensed: 0 metoprolol 25 mg oral tablet, extended release 37.5 mg, 1.5, tablet, By Mouth, Daily, # 45 tablet, Refills 4, Tot. Refills 4, Maintenance, 7/16/255:00:00 PM EDT, Route to Pharmacy Electronically, [id number], Partial fill upon patient request if the prescription is for a schedule II opioid drug., 178, cm, 10/17/24 13:54:00 EDT, Height, 156, kg, 10/13/24 11:21:00 EDT, Dry Weight Start Date: 10/19/24 Stop Date: 03/18/25 Status: Ordered Medication Dispense Status: Completed Quantity: 45.0 Unit: tablet Total Allowed Fills: 5 Fills Dispensed: 0 Indications: Essential (primary) hypertension; sildenafil 100 mg oral tablet 1 tablet, By Mouth, Daily, PRN NEEDED FOR ERECTILE DYSFUNCTION, # 30 tablet, 5 Refills, Maintenance, 01/20/25 9:34:00 PM EDT, [id number], 178, cm, 10/17/24 13:54:00 EDT, Height, 156, kg, 10/13/24 11:21:00 EDT, Dry Weight Start Date: 01/20/25 Status: Ordered Medication Dispense Status: Completed Quantity: 30.0 Unit: tablet Total Allowed Fills: 6 Fills Dispensed: 0 Mental Status Mental Status Assessment Assessment Assessment Component Result Effecti ve Date Patient Health Questionnaire 2 item (PHQ-2) total score [Reported] 0 03/07/25 Problem List Condition Confirmation Course Effective Dates [...] Confirmed Active History of depression Confirmed Active History of substance abuse Confirmed Active Leukocytoclastic vasculitis Confirmed Active Hypertriglyceridemia Confirmed Active Morbid obesity Confirmed Active Nodule of right lung 1 Confirmed Active FISH treated with BiPAP Confirmed Active Peripheral edema Confirmed Active Seasonal allergies Confirmed Active Severe obesity Confirmed Active 1seen on CT scan Diagnosis Diagnosis Type Effective Dates Health Status Clinical Service Informant Hospital discharge follow-up Discharge Diagnosis 03/06/25 Herpes zoster ophthalmicus, right eye Discharge Diagnosis 03/07/25 Administrative encounter Discharge Diagnosis 03/07/25 Vital Signs Most recent to oldest [Reference Range]: 1 Height 179 cm (03/07/25 11:11 AM) Weight 146.5 kg (12/2/25 11:11 AM) Oxygen Saturation [94-100 %] 100 % (03/07/25 11:11 AM) Pulse Rate [55-90 bpm] 70 bpm (03/07/25 11:11 AM) Body Mass Index [18.5-24.99 kg/m2] 45.72 kg/m2 *H* (03/07/25 11:11 AM) Blood Pressure [90-138/55-84 mm Hg] 120/ 80mm Hg (03/07/25 11:11 AM) Blood pressure sites Arm, left (03/07/25 11:11 AM) Weight Obtained Via Standing scale (03/07/25 11:11 AM) Social History Social History Type Response Sexual Sexually involved in last 6 months: Yes. Gender identity: Identifies as male. Smoking Status Former smoker, quit more than 30 days ago; Other: ex-smoker - started smoking at age 16 - smoked 1 PPD until age 23 - quit - then started smoking at age 31 - smoked 2 packs per until age 42 - quit again - doesn't qualify for lung CA smoking anymore as he is past 15 years since quit smoking ; Total pack years: 30; entered on: 09/07/24 Sex Sex Representation Male (finding) Patient Care team information Care Team Personnel Name: Yessi Patel RN Position: [facility] RN Member Role: Primary Care Nurse Name: Missy Huerta RN Position: [facility] RN Member Role: Primary Care Nurse Name: Rae Ayala RN Position: S RN Member Role: Primary Care Nurse Name: Codie Castro RN Position: S RN Member Role: Primary Care Nurse Name: Erin Vu RN Position: S RN Member Role: Primary Care Nurse Name: Latanya Garcia MD Position: [facility] Physician - Primary Care Member Role: PCP Address: [address] [place] [address]- Telecom: Name: Priyanka Womack RN Position: S RN Member Role: Primary Care Nurse Name: Shyanne Rousseau RN Position: [facility] AMB Nurse Member Role: Primary Care Nurse Name: Marcelle Farris RN Position: S RN Member Role: Primary Care Nurse Care Team Related Persons Name: MAN COLÓN Name: MAN MORENO Name: MAN MORENO Insurance Providers Guarantor name: ISIDRO MORENO [employer] Plan Information #: 1 [facility] Payer Identifier: NA Member Number: [id number] Group Number: [id number] Subscriber Identifier: [id number] Relationship to Subscriber: self Coverage Type: Managed Care (Private) Coverage Verification Date: NA Telecom: NA Address: NA
--- NOTE | 2025-03-16 16:11 | MHC.OFFVIS ---
Vital Signs 03/16/25 16:12 Height 5 ft 11 in Weight 327 lb 6.183 oz BMI 45.7 BP 130/70 Blood Pressure Location Lt brachial Position Sitting Pulse 68 Pulse Source Pulse Oximeter Pulse Oximetry (%) 99 Oxygen Delivery Method Room Air Intake Visit Reasons: Obstructive sleep apnea Intake Note: pt is here for follow up of FISH, and is doing okay but he had a hospital stay for shingles, and pneumonia in October. Guidance Services Coordinator Required: No Allergies azathioprine (From Imuran) Adverse Reaction (Unknown, Verified 03/16/25 16:37) HYPOTENSION oxycodone (From Percocet) Adverse Reaction (Unknown, Verified 03/16/25 16:37) NAUSEA & VOMITING Medication List - Last Reconciled 03/16/25 by Fabricio Jernigan MD allopurinol 150 mg PO DAILY cholecalciferol (vitamin D3) 25 mcg PO DAILY infliximab (Remicade) IV .q7w losartan 100 mg PO DAILY magnesium 400 mg PO DAILY metoprolol succinate ER 40 mg PO Q12H multivitamin (Daily Multi-Vitamin tablet) 1 tab PO DAILY sildenafil 100 mg PO DAILY PRN tamsulosin 0.4 mg PO BEDTIME Do you need a note to return to daycare/school/sports/work: No HPI HPI Obstructive sleep apnea: Details: THIS [age] OLD GENTLEMAN WITH MORBID OBESITY, IS A CASE OF OBSTRUCTIVE SLEEP APNEA AND HAS BEEN USING CPAP VERY REGULARLY. TWO WEEKS AGO HE DEVELOPED HERPES ZOSTER ON THE RIGHT SIDE OF THE HEAD AND FACE. IT AFFECTED HIS EYESIGHT BUT LUCKILY DID NOT GET ANY CORNEAL OPACITIES. HE WAS KEPT IN THE HOSPITAL FOR FOUR DAYS AND TREATED WITH IV STEROIDS , VALTREX AND ANTIBIOTICS, THEN SENT HOME HE IS DOING OKAY BUT STILL HAS SOME SENSITIVITY IN THE RIGHT EYE. BEING FOLLOWED BY THE [facility]ER OUT. EVEN DURING SICKNESS WHEN HE WAS IN THE HOSPITAL HE KEPT ON USING HIS CPAP, BECAUSE WITHOUT THE CPAP HE CAN NOT SLEEP. HE HAS LOST SOME WEIGHT, THIS MAY BE DUE TO ACUTE SICKNESS. [facility] Medical History Crohn disease FISH treated with BiPAP Morbid obesity Social History Patient Tobacco Use Status: Former Tobacco user Years Smoked: 2007 Review of Systems Const All systems reviewed & are unremarkable except as noted in HPI and below Eyes Reports no additional complaints ENT Reports no additional complaints Card Denies chest pain, Denies irregular heart rhythm, Denies leg edema and Denies dyspnea on exertion Resp Denies cough, Denies dyspnea on exertion and Denies wheezing GI Reports no additional complaints Musc Reports back pain and Reports arthralgias (CONTROLLED WITH MEDICINE) Skin/Breast Reports system reviewed and no additional complaints, except as documented Neuro Reports no additional complaints Psych Reports no additional complaints Aller/Immun Denies wheezing Physical Exam Vital Signs: Last Vital Signs Pulse 68 03/16/25 16:12 BP 130/70 03/16/25 16:12 Pulse Ox 99 03/16/25 16:12 Oxygen Delivery Method Room Air 03/16/25 16:12 BMI result Body Mass Index 45.7 Const Other: Grossly obese with a round face General: comfortable, no acute distress, alert and awake Orientation/consciousness: patient oriented x3 HEENT Other: HAS SOME RESIDUAL ULCERATED LESIONS ON THE RIGHT SIDE OF THE SCALP Head: No normal to inspection (RESIDUAL LESIONS OF HERPES ZOSTER ON THE RIGHT SIDE OF THE HEAD) General nose exam: No nasal polyps present and No nasal discharge present Face and sinus: Yes sinuses nontender Mouth: oropharynx normal Throat: Yes posterior oropharynx normal Eyes General: appearance normal, both eyes and all related structures Neck Neck: Yes normal visual inspection, Yes no lymphadenopathy, Yes trachea midline and Yes no JVD Thyroid: Thyroid normal Chest Chest palpation & inspection: normal inspection of the chest, normal palpation of entire chest wall and no tenderness Resp Effort & Inspection: normal respiratory effort Auscultation: clear to auscultation bilaterally, no crackles and no wheezes Percussion: percussion normal Cardio Palpation: normal PMI Rate: regular rate Rhythm: regular rhythm Heart sounds: no gallops and no murmurs Peripheral pulses: Peripheral pulses 2+ throughout GI Palpation (GI): Soft to palpation, nontender, No hepatosplenomegaly present, no masses and Other GI palpation findings present (Abdomen is markedly obese and protuberant) Auscultation: normal bowel sounds Back/Spine/Pelvis Thoracic/Lumbar Spine: thoracic and lumbar spine normal to inspection Skin General skin exam: no rashes or lesions noted Neuro General: patient oriented x3 and no focal motor deficits Cranial nerves: Yes CN's II-XII intact bilaterally Extrem General: Yes normal to inspection, Yes no clubbing, cyanosis or edema and Yes no calf tenderness Psych Appearance: grossly normal and well kempt Speech and movement: Normal speech and movement present Results Reviewed Results Reviewed: COMPLIANCE REPORT FOR THE LAST THIRTY NIGHTS SHOWS THAT HE HAS USED THIRTY/THIRTY NIGHTS AND AVERAGE USE IT PER NIGHT IS EIGHT HOURS FIFTY HE IS ON BIPAP SET UP BUT HIS PRESSURE IS 19.4 CM/19.4 CM. HE HAS NO AIR LEAK AND RESIDUAL AHI ONLY ONE POINT TWO Assessment & Plan Assessment & Plan (1) Morbid obesity: Comment: THIS GENTLEMAN REMAINS MORBIDLY OBESE. HE HAS NOT BEEN DOING MUCH EXERCISE. HE SEEMS TO BE WELL MOTIVATED TO LOSE WEIGHT, AND IS GOING TO TRY HIS BEST. JUST BY ADJUSTING HIS DIET HE HAS BEEN ABLE TO LOSE TWENTY FIVE LB OF WEIGHT SINCE LAST VISIT. Code(s): E66.01 - Morbid (severe) obesity due to excess calories Category: Medical Plan: COMMENDED FOR STARTING TO LOSE WEIGHT AND ADVISED TO STAY ON THIS CONTROLLED DIET, ALSO DO MUCH EXERCISE. POSSIBLE (2) FISH treated with BiPAP: Comment: HE IS VERY COMPLIANT TO USE CPAP, PRESSURE 19.6 CMs , FULLFACE MASK AND CHINSTRAP . HE IS DEFINITELY BENEFITING. HE HAS NO ISSUES WITH THE MASK OR CPAP DEVICE. HE IS WELL MOTIVATED TO KEEP ON USING IT REGULARLY. Code(s): G47.33 - Obstructive sleep apnea (adult) (pediatric) Category: Medical Plan: COMMENDED FOR GOOD COMPLIANCE. AND ADVISED TO KEEP ON USING THE CPAP EVERY NIGHT REGULARLY. Coding Level of Care Code Est Pt Level 3 (20452) Diagnoses Morbid obesity E66.01 FISH treated with BiPAP G47.33
[2025-03-16 16:12] VITALS: BP 130/70; PULSE 68; O2SAT 99; BMI 45.7
--- OUTSIDE RECORDS SUMMARY | 2025-03-16 23:06 | XMS_ITS | Clinical Summary ---
Author Organization Formerly [facility] Address [address] [place] [address] Care Team Providers Care River Rafting Guide Name Role Phone David Davis Primary Care Provider [phone] Allergies Active Allergy Reactions Criticality Noted Date Comments Azathioprine Rash/Dermatitis Low 06/02/2019 Other reaction(s): Passed out Oxycodone-Acetaminophen Other (See Comments),GI Intolerance/Nausea/V omiting Low 06/02/2019 Medications allopurinol (ZYLOPRIM) 300 MG tablet Take 0.5 tablets (150 mg total) by mouth every morning. 01/20/20 23 Active EPINEPHrine (Adrenalin) 1 mg/mL Solution injection Inject 0.3 mL (0.3 mg total) into the shoulder, thigh, or buttocks. 09/14/19 24 Active losartan (COZAAR) 100 MG tablet Take 1 tablet (100 mg total) by mouth every morning. 01/20/20 23 Active Multiple Vitamins-Minera ls (Centrum Silver 50+Men) Tab Take 1 tablet by mouth daily. Active sildenafil (VIAGRA) 100 MG tablet Take 1 tablet (100 mg total) by mouth daily as needed for erectile dysfunction. Active Water For Injection Sterile (sterile water) injection 80 mL. 09/14/19 24 Active polyethylene glycol-electrol ytes (NuLYTELY, TRILYTE) 420 g solutionIndicat ions:Crohn's disease of colon with complication (HCC) Take as directed for Colonoscopy/GI Procedure. See administration instructions. 4000 mL 10/21/19 24 Active Additional Information Patient not taking.Reported on 03/06/2025 inFLIXimab (REMICADE) 100 MG injectionIndica tions:Crohn's disease of colon with complication (HCC) Infuse 80 mL (800 mg total, 5 mg/kg x 154 kg (Order-specific weight)) into a venous catheter once. 80 mL 12/27/19 Active Additional Information Patient not taking.Reported on 03/06/2025 hydroCHLOROthia zide (HYDRODIURIL) 25 MG tablet Take 25 mg by mouth. Active inFLIXimab-dyyb (INFLECTRA) 100 MG injection 800 mg. 12/29/19 25 026 Active methoTREXate (RHEUMATREX) 2.5 mg tablet TAKE 6 TABLETS ONCE WEEKLY AT BEDTIME Active tamsulosin (FLOMAX) 0.4 MG capsule TAKE 1 CAPSULE NIGHTLY AT BEDTIME Active metoPROLOL SUCCINATE (TOPROL-XL) 25 MG 24 hr tablet Take 37.5 mg by mouth. Active folic acid (FOLVITE) 1 MG tablet Take 1,000 mcg by mouth every morning with breakfast. Active amLODIPine (NORVASC) 5 MG tablet Take 2 tablets (10 mg total) by mouth every morning. 02/18/20 025 Discontinu ed(Therapy completed) Valtrex 1 g tablet Take 1 g by mouth. 03/01/20 025 Active Problems Problem Noted Date Diagnosed Date Crohn's disease of colon with complication 03/06 Encounters Date Type Department Care Team Description 03/06/2025 2:30 PM EST Office Visit [address] [phone] Jamee Porras PA-C Crohn's disease of colon with complication (HCC) (Primary Dx); Infliximab (Remicade) long-term use 12/27/2024 Scanned Document [address] [place] [phone] Jamee Porras PA-C from Last 3 Months Family History Medical History Relation Name Comments Alcohol abuse Brother Riley Harley Alcohol abuse Father Duc Harley Alcohol abuse Sister Mari Harley Relation Name Status Comments Brother Riley Harley Father Duc Harley Sister Mari Pascualnon Social History Tobacco Use Types Packs/Day Years Used Date Smoking Tobacco: Former Cigarettes 2 15 Q uit: 04/06/2009 Smokeless Tobacco: Never Tobacco Cessation:Counseling Given: Not Answered Alcohol Use Standard Drinks/Week Comments Not Currently 0 (1 standard drink = 0.6 oz pur e alcohol) AUDIT-C Answer Date Recorded Q1: How often do you have a drink containing alcohol? Never 02/11/2024 Q2: How many drinks containi ng alcohol do you have on a typical day when you are drinking? Patient does not drink Q3: How often do you have si x or more drinks on one occasion? Never 02/11/2024 Sex and Gender Information Value Date Recorded Sex Assigned at Male 10/19/2023 7:08 PM EDT Legal Sex Male 2:43 PM EDT Gender Identity Not on file Sexual Orientation Not on file Last Filed Vital Signs Vital Sign Reading Time Taken Comments Blood Pressure 128/82 03/06/2025 2:36 PM EST Pulse 79 03/06/2025 2:36 PM EST Temperature 36.8 C (98.2 F) 03/06/2025 2:36 PM EST Respiratory Rate 20 02/18/2024 11:28 AM EST Oxygen Saturation 99% 02/18/2024 11:28 AM EST Inhaled Oxygen Concentration - - Weight 145 kg (320 lb) 03/06/2025 2:36 PM EST Height 177.8 cm (5' 10 ) 03/06/2025 2:36 PM EST Body Mass Index 45.92 03/06/2025 2:36 PM EST Plan of Treatment Health Maintenance Due Date Last Done Comments Hepatitis C Virus Screening 1965 HIV Screening 10/29/1980 DTaP/Tdap/Td Vaccines (1 - Tdap) 10/29/1986 Hepatitis B Vaccines (1 of 3 - 19+ 3-dose series) 10/29/1986 Pneumococcal Vaccines 50+ (1 of 2 - PCV) 10/29/1986 Zoster (Shingles) Vaccine (1 of 2) 10/29/1986 RSV Vaccine 50 years and old er and Patients (1 - Risk 50-74 years 1-dose series) 10/29/2017 COVID-19 Vaccine (2 - Jansse n risk series) 01/15/2021 12/18/2020 Influenza Vaccine 11/04/2024 03/11/2024, , 02/02/2020, Additional history exists Colonoscopy 02/17/2026 02/18/2024 Quantiferon Gold TB 03/13/2026 03/13/2025, Procedures Procedure Name Priority Date/Time Associated Diagnosis Comments ZINC LEVEL Routine 03/13/2025 1:26 PM EST Crohn's disease of colon with complication (HCC) VITAMIN D, 25-HYDROXY Routine 03/13/2025 1:26 PM EST Crohn's disease of colon with complication (HCC) FOLATE LEVEL Routine 03/13/2025 1:26 PM EST Crohn's disease of colon with complication (HCC) VITAMIN B12 Routine 03/13/2025 1:26 PM EST Crohn's disease of colon with complication (HCC) QUANTIFERON(R)-TB GOLD PLUS, 1 TUBE Routine 03/13/2025 1:26 PM EST Crohn's disease of colon with complication (HCC) COMPREHENSIVE METABOLIC PANEL Routine 03/13/2025 1:26 PM EST Crohn's disease of colon with complication (HCC) COMPLETE BLOOD COUNT, WITH DIFFERENTIAL Routine 03/13/2025 1:26 PM EST Crohn's disease of colon with complication (HCC) IRON, TIBC, AND FERRITIN PANEL Routine 03/13/2025 1:26 PM EST Crohn's disease of colon with complication (HCC) ERYTHROCYTE SEDIMENTATION RATE (ESR) Routine 03/13/2025 1:26 PM EST Crohn's disease of colon with complication (HCC) C-REACTIVE PROTEIN Routine 03/13/2025 1: 26 PM EST Crohn's disease of colon with complication (HCC) from Last 3 Months Results * QUANTIFERON ?? -TB GOLD PLUS, 1 TUBE (03/13/2025 1:26 PM EST) Quantiferon TB Gold Plus, 1T NEGATIVE NEGATIVE [facility] Comment: Negative test result. M. tuberculosis complex infection unlikely. Quantiferon NIL 0.36 IU/mL [facility] Quantiferon Mitogen-NIL 6.46 IU/mL [facility] Quantiferon TB1-NIL 0.15 IU/mL [facility] Quantiferon TB2-NIL 0.13 IU/mL [facility] Comment: The Nil tube value reflects the background interferon gamma immune response of the patient's blood sample. This value has been subtracted from the patient's displayed TB and Mitogen results. Lower than expected results with the Mitogen tube prevent false-negative Quantiferon readings by detecting a patient with a potential immune suppressive condition and/or suboptimal pre-analytical specimen handling. The TB1 Antigen tube is coated with the M. tuberculosis-specific antigens designed to elicit responses from TB antigen primed CD4+ helper T-lymphocytes. The TB2 Antigen tube is coated with the M. tuberculosis-specific antigens designed to elicit responses from TB antigen primed CD4+ helper and CD8+ cytotoxic T-lymphocytes. For additional information, please refer to https://education.[employer]/faq/ZTS361 (This link is being provided for informational/ educational purposes only.) Blood Blood specimen / Unknown 03/13/2025 1:26 PM EST 03/13/2025 1:27 PM EST Jamee Porras PA-C LAB BLOOD ORDERABLES Final Res ult [facility] [address] [place] [phone] * Iron, TIBC, and Ferritin Panel (03/13/2025 1:26 PM EST) Iron 139 50 - 180 mcg/dL [facility] Total Iron Binding Capacity 291 250 - 425 mcg/dL (calc) [facility] Iron Saturation 48 20 - 48 % (calc) [facility] Ferritin 308 38 - 380 ng/mL [facility] Blood Blood specimen / Unknown 03/13/2025 1:26 PM EST 03/13/2025 1:27 PM EST Jamee Porras PA-C LAB BLOOD ORDERABLES Final Res ult [facility] [address] [place] [phone] * Complete Blood Count, with Differential (03/13/2025 1:26 PM EST) White Blood Cell Count 7.1 3.8 - 10.8 Thousand/u L [facility] Red Blood Cell Count 5.08 4.20 - 5.80 Million/uL [facility] Hemoglobin 15.9 13.2 - 17.1 g/dL [facility] Hematocrit 47.4 39.4 - 51.1 % [facility] MCV 93.3 81.4 - 101.7 fL [facility] MCH 31.3 27.0 - 33.0 pg [facility] MCHC 33.5 31.6 - 35.4 g/dL [facility] RDW 13.5 11.0 - 15.0 % [facility] Platelet Count 267 140 - 400 Thousand/u L [facility] MPV 11.2 7.5 - 12.5 fL [facility] Abs Neutrophils Auto 3,898 1,500 - 7,800 cells/uL [facility] Abs Lymphocytes Auto 2,492 850 - 3,900 cells/uL [facility] Abs Monocytes Auto 440 200 - 950 cells/uL [facility] Abs Eosinophils Auto 170 15 - 500 cells/uL [facility] Abs Basophils Auto 99 0 - 200 cells/uL [facility] Neutrophils Auto 54.9 % [facility] Lymphocytes Auto 35.1 % [facility] Monocytes Auto 6.2 % [facility] Eosinophils Auto 2.4 % [facility] Basophils Auto 1.4 % [facility] Blood Blood specimen / Unknown 03/13/2025 1:26 PM EST 03/13/2025 1:27 PM EST Jamee Porras PA-C LAB BLOOD ORDERABLES Final Res ult Performing Organization Address [facility]/ZIP Co de Phone Number [facility] [address] [place] [phone] * ZINC LEVEL (03/13/2025 1:26 PM EST) Zinc 73 60 - 130 mcg/dL [email or web address] Comment: This test was developed and its analytical performance characteristics have been determined by [email or web address] [place], [place]. It has not been cleared or approved by the U.S. Food and Drug Administration. This assay has been validated pursuant to the CLIA regulations and is used for clinical purposes. Blood Blood specimen / Unknown 03/13/2025 1:26 PM EST 03/13/2025 1:27 PM EST Jamee Porras PA-C LAB BLOOD ORDERABLES Final Res ult Performing Organization Address [facility] Co de Phone Number [facility] [address] [facility] [place] [phone] * VITAMIN D, 25-HYDROXY (03/13/2025 1:26 PM EST) Vitamin D,25-Oh,Total, IA 33 30 - 100 ng/mL [facility] Comment: Vitamin D Status 25-OH Vitamin D: Deficiency: <20 ng/mL Insufficiency: 20 - 29 ng/mL Optimal: > or = 30 ng/mL For 25-OH Vitamin D testing on patients on D2-supplementation and patients for whom quantitation of D2 and D3 fractions is required, the QuestAssureD(TM) 25-OH VIT D, (D2,D3), LC/MS/MS is recommended: order code 18190 (patients >2yrs). See Note 1 Note 1 For additional information, please refer to http://education.[employer]/faq/VIT513 (This link is being provided for informational/ educational purposes only.) Blood Blood specimen / Unknown 03/13/2025 1:26 PM EST 03/13/2025 1:27 PM EST Jamee Porras PA-C LAB BLOOD ORDERABLES Final Res ult Performing Organization Address [facility] de Phone Number [facility] [address] [place] [phone] * Erythrocyte Sedimentation Rate (ESR) (03/13/2025 1:26 PM EST) Pathologist [facility] Erythrocyte Sediment Rate (ESR) 6 < OR = 20 mm/h [facility] Blood Blood specimen / Unknown 03/13/2025 1:26 PM EST 03/13/2025 1:27 PM EST Jamee Porras PA-C LAB BLOOD ORDERABLES Final Res ult Performing Organization Address [facility] de Phone Number [facility] [address] [place] [phone] * C-REACTIVE PROTEIN (03/13/2025 1:26 PM EST) Pathologist [facility] C-Reactive Protein 4.5 <8.0 mg/L [facility] Blood Blood specimen / Unknown 03/13/2025 1:26 PM EST 03/13/2025 1:27 PM EST Jamee Porras PA-C LAB BLOOD ORDERABLES Final Res ult Performing Organization Address [facility] de Phone Number [facility] [address] [place] [phone] * Folate Level (03/13/2025 1:26 PM EST) Pathologist [facility] Folate, Serum >24.0 ng/mL [facility] Comment: Reference Range Low: <3.4 Borderline: 3.4-5.4 Normal: >5.4 Blood Blood specimen / Unknown 03/13/2025 1:26 PM EST 03/13/2025 1:27 PM EST Jamee SANTANAJanet LAB BLOOD ORDERABLES Final Res ult Performing Organization Address [facility] de Phone Number [facility] [address] [place] [phone] * VITAMIN B12 (03/13/2025 1:26 PM EST) Vitamin B12 401 200 - 1,100 pg/mL [facility] Blood Blood specimen / Unknown 03/13/2025 1:26 PM EST 03/13/2025 1:27 PM EST Jamee SANTANA LAB BLOOD ORDERABLES Final Res ult Performing Organization Address [facility] de Phone Number [facility] [address] [place] [phone] * Comprehensive Metabolic Panel (03/13/2025 1:26 PM EST) Pathologist [facility] Glucose 94 65 - 99 mg/dL [facility] Comment: Fasting reference interval Blood Urea Nitrogen (BUN) 16 7 - 25 mg/dL [facility] Creatinine 1.20 0.70 - 1.30 mg/dL [facility] Creatinine w/ eGFR 71 > OR = 60 mL/min/1. 73m2 [facility] BUN/Creatinine Ratio SEE NOTE: 6 - 22 (calc) [facility] Comment: Not Reported: BUN and Creatinine are within reference range. Sodium 138 135 - 146 mmol/L [facility] Potassium 4.5 3.5 - 5.3 mmol/L [facility] Chloride 101 98 - 110 mmol/L [facility] CO2 28 20 - 32 mmol/L [facility] Calcium 9.2 8.6 - 10.3 mg/dL [facility] Protein, Total 7.3 6.1 - 8.1 g/dL [facility] Albumin 4.3 3.6 - 5.1 g/dL [facility] Globulin 3.0 1.9 - 3.7 g/dL (calc) [facility] Albumin/Globuli n Ratio 1.4 1.0 - 2.5 (calc) [facility] Bilirubin, Total 0.6 0.2 - 1.2 mg/dL [facility] Alkaline Phosphatase 44 35 - 144 U/L [facility] Aspartate Aminotrans (AST) 18 10 - 35 U/L [facility] Alanine Aminotrans (ALT) 22 9 - 46 U/L [facility] Blood Blood specimen / Unknown 03/13/2025 1:26 PM EST 03/13/2025 1:27 PM EST Jamee Porras PA-C LAB BLOOD ORDERABLES Final Res ult [facility] [address] [place] [phone] from Last 3 Months Insurance HMO/POS HMO/POS Care Teams River Rafting Guide Relationship Specialty Start Date End Date David Davis DO [address] [place] [phone] PCP - General Family Medicine 08/06/23
--- OUTSIDE RECORDS SUMMARY | 2025-03-16 23:06 | XMS_ITS | Patient Health Record ---
Author Organization [facility] Address [address] [place] [phone] Care Team Providers Care Relief Cook Name Role Phone Jocelin KANG, Joan Primary Care Provider David Morin [phone] Allergies Allergen (clinical drug ingredient) Drug/Non Drug Allergy documented on EMR Reaction Allergy Type Onset Date Status azathioprine Imuran Unknown Drug Allergy Acti ve acetaminophen / oxycodone Percocet Unknown Drug Allergy Active Reason For Referral No Information Medications Medication SIG (Take, Route, Frequency, Duration) Notes Start Date End Date Status Omeprazole 20MG Enteric Coat ed Capsule TAKE 1 CAPSULE ONCE DAILY Orally Once a day; Duration: 90 Active hydroCHLOROthiazide Active Allopurinol Active Remicade Active Losartan Potassium A ctive Social History Social History Additional Details Category Social Info Options Details Miscellaneous: Marital status: ; currently living with sig. 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 Section Notes: No alcohol x 23 years, forme r smoker No alcohol x 23 years, forme r smoker No alcohol x 23 years, nonsm oker x 3 yrs No alcohol x 23 years, nonsm oker x 3 yrs Problems Problem Type SNOMED Code ICD Code Onset Dates Problem Status W/U Status Risk Notes Problem Crohn's disease of small AND large intestines (76060049) Crohns disease of both small and large intestine without complication (K50.80) Active confirmed Problem Gastroesophageal reflux disease (998629059) Gastroesophageal reflux disease, esophagitis presence not specified (K21.9) Active confirmed Plan Of Treatment Pending Test Test Name Order Date LIVER PROFILE 08/19/2011 CBC w DIFF 08/19/2011 Future Test Test Name Order Date COLONOSCOPY 01/01/2016 Insurance Providers Payer Name Payer Address Payer Phone Subscriber Number Group Number Insured Name Patient Relationship to Insured Coverage Start Date Coverage End Date [facility] PROF[employer]AL CLAIMS [address] [place] [address] [id number] ISIDRO MORENO JR Self - patient is the insured Medical (General) History Medical History History ICD Code colon 5-13-10 showed Crohn's disease and hyperplastic/inflammatory polyps, but no dysplasia--most recent Remicade infusion was in early 09/2012 Crohn's disease of large and small intestine diagnosed in 2002--pancolitis and ileitis--started Remicade in 09/2003--intolerant to Imuran GERD--uses Omeprazole as needed Denies MA,DM,CVA,Lung disease,renal dise ase HTN Gout EGD and Colonoscopy [place] [address] Kwame schmidt Arthritis sleep apnea--uses a CPAP device Surgical History Surgery Date(Month/Year) APPENDECTOMY ANKLE SURGERY NOSE SURGERY [facility]
--- OUTSIDE RECORDS SUMMARY | 2025-03-16 23:06 | XMS_ITS | Encounter Summary ---
Author Organization [facility] Address [address] [place] [address] Care Team Providers Care Choke Setter Name Role Phone David Davis DO Primary Care Provider [phone] Encounter Details Date Type Department Care Team ([facility] st Contact Info) Description 12/27/2024 Scanned Document [facility] [address] [place] [address] Jamee Porras PA-C [address] [facility] [address] [place] [address] Social History Tobacco Use Types Packs/Day Years Used Date Smoking Tobacco: Former Smokeless Tobacco: Never Alcohol Use Standard Drinks/Week Comments Not Currently [...] on file Sexual Orientation Not on file documented as of this encounter Plan of Treatment Not on file documented as of this encounter Visit Diagnoses Not on filedocumented in this encounter Care Teams Choke Setter Relationship Specialty Start Date End Date [facility] [place] [address] PCP - General Family Medicine 08/06/23 documented as of this encounter
--- OUTSIDE RECORDS SUMMARY | 2025-03-16 23:06 | XMS_ITS ---
Author Name [facility] Organization Unknown History of Medication Use Medication Directions Dispensed Refills Start Date End Date Stat us polyethylene glycol-electrolytes (NuLYTELY, TRILYTE) 420 g solution Take as directed for Colonoscopy/GI Procedure. See administration instructions. 10/21/2023 active EPINEPHrine (Adrenalin) 1 mg/mL Solution injection Inject 0.3 mg into the shoulder, thigh, or buttocks. 09/14/2023 09/10/2024 active Water For Injection Sterile (sterile water) injection 80 mL. 09/14/2023 09/10/2024 active amLODIPine (NORVASC) 5 MG tablet Take 2 tablets (10 mg total) by mouth every morning. 02/17/2023 active amLODIPine (NORVASC) 5 MG tablet Take 5 mg by mouth. 02/17/2023 activ e allopurinol (ZYLOPRIM) 300 MG tablet Take 150 mg by mouth daily. 01/19/2023 active losartan (COZAAR) 100 MG tablet Take 1 tablet (100 mg total) by mouth every morning. 01/19/2023 active inFLIXimab (REMICADE) 100 MG injection Infuse into a venous catheter. Once every 7 weeks active Multiple Vitamins-Minerals (Centrum Silver 50+Men) Tab Take 1 tablet by mouth daily. active sildenafil (VIAGRA) 100 MG tablet Take 1 tablet (100 mg total) by mouth daily as needed for erectile dysfunction. active Allergies Allergen Reaction Severity Comment Documented Date Source Statu s OXYCODONE-ACETAMINO PHEN GI INTOLERANCE/NA USEA/VOMITING 06/02/2019 [facility] active AZATHIOPRINE RASH/DERMATITI S Other reaction(s): Passed out [facility] Problems Problem Status Onset Date Problem Type Date of Resoluti on Source Infliximab (Remicade) long-term use active EncounterDiagnosisAct [facility] Crohn's disease of colon with complication active 2025-03-06 ProblemAct [facility] Encounters Encounter Type Encounter Reason Primary Diagnosis Location Date Ambulatory Follow-up Follow-up [facility] 03/06/2025 Ambulatory Crohn's disease of large intestine without complications Crohn's disease of large intestine without complications [facility] 02/18/2024 Ambulatory Crohn's Disease Crohn's Disease [facility] 10/21/2023 Care Team Organization Name Specialty Phone Email Start Date End Da te [facility] ALICE IRELAND Primary [facility] 01/25/2024 [facility] 10/23/2023 [facility] 08/06/2023
== END 2025-03-16 16:37 | disposition home or self-care (01) ==
LOC: HO.HPS 15:43
PROVIDERS: PCP Family Medicine; Visit Provider Internal Medicine
DX: E66.01 Morbid (severe) obesity due to excess calories (principal); G47.33 Obstructive sleep apnea (adult) (pediatric)
CPT/HCPCS: 99213